=== PATIENT | female | born 2005 | race African-American/Black ===

== ENCOUNTER 2024-06-01 00:17 | Emergency (ER) | payer MEDICAID ==
[~2024-06-01] VITALS: Ht 170.2 cm; Wt 53.0 kg
[2024-06-01 00:27] VITALS: BP 126/84; PULSE 88; RESP 18; TEMP 37; O2SAT 99
[2024-06-01 02:47] LABS: CARBON DIOXIDE 24 mEq/L (21-32); CHLORIDE 106 mEq/L (98-107); SODIUM 139 mEq/L (136-145)
[2024-06-01 02:48] LABS: CALCIUM 9.4 mg/dL (8.7-10.4)
[2024-06-01 02:53] LABS: CREATININE 0.8 mg/dL (0.6-1.0); GLUCOSE 92 mg/dL (70-105); UREA NITROGEN BLOOD 12 mg/dL (9-23)
[2024-06-01 02:54] LABS: ALANINE AMINOTRANSFERASE 13 IU/L (10-49)
[2024-06-01 02:55] LABS: ALBUMIN 4.7 g/dL (3.2-4.8); ASPARTATE AMINOTRANSFERASE 19 IU/L (<34); BILIRUBIN TOTAL 0.6 mg/dL (0.1-1.0); PROTEIN TOTAL 7.6 g/dL (6.0-8.3)
[2024-06-01 03:23] LABS: BASOPHILS % 0.4 % (0.0-2.0); EOSINOPHILS % 0.1 % (0.0-5.0); HEMATOCRIT. 34.5 % (36.0-48.0); HEMOGLOBIN. 11.3 g/dL (12.0-16.0); LYMPHOCYTES % 19.1 % (20.0-50.0); MEAN CORPUSCULAR HEMOGLOBIN 27.5 pg (28.0-32.0); MEAN CORPUSCULAR HGB CONC 32.8 g/dL (31.0-37.0); MEAN PLATELET VOLUME 8.6 fl (7.4-10.4); MONOCYTES % 7.8 % (2.0-8.0); NEUTROPHILS % 72.6 % (40.0-76.0); PLATELET 313 x1000/uL (130-400); RED BLOOD CELL COUNT 4.11 mill/uL (4.2-5.4); RED CELL DISTRIBUTION WIDTH 15.4 % (11.6-14.6); WHITE BLOOD COUNT 9.6 x1000/uL (4.5-11.0)
[2024-06-01] MEDS: ONDANSETRON 4MG ODT PO ONE (03:32)
[2024-06-01] MEDS: ONDANSETRON 4MG ODT PO NR (03:32)
[2024-06-01 04:02] LABS: CLARITY URINE TURBID (CLEAR); COLOR URINE YELLOW (YELLOW); GLUCOSE URINE NEGATIVE (NEGATIVE); KETONES URINE 2+ (NEGATIVE); LEUKOCYTE ESTERASE URINE TRACE (NEGATIVE); NITRITE URINE NEGATIVE (NEGATIVE); OCCULT BLOOD URINE NEGATIVE (NEGATIVE); PH URINE 6.5 (4.5-8.0); PROTEIN URINE 1+ (NEGATIVE); SPECIFIC GRAVITY URINE 1.042 (1.005-1.030)
[2024-06-01] MEDS ORDERED: IBUP-2028 MT (04:29)
[2024-06-01] MEDS ORDERED: ONDA-239 PO (04:29)
[2024-06-01] MEDS ORDERED: NITR-87 MT (04:29)
[2024-06-01 04:51] LABS: HCG SCREEN NEGATIVE
[2024-06-01 06:11] LABS: SQUAMOUS EPITHELIAL CELL URINE 1+ /lpf (RARE/1+)
[2024-06-01 06:15] LABS: RBC URINE 0-2 /hpf (0-2)
[2024-06-01 06:16] LABS: AMORPHOUS SEDIMENT URINE 2+ /lpf; BACTERIA URINE NONE SEEN
== END 2024-06-01 04:40 | disposition home or self-care (01) ==
LOC: ER 00:17
DX: R11.2 Nausea with vomiting, unspecified (principal); N39.0 Urinary tract infection, site not specified
CPT/HCPCS: 99283; 80053; 81003; 81025; 84703; 85025; 36415; Q0162

== ENCOUNTER 2024-11-10 10:25 | Emergency (ER) | payer MEDICAID ==
[~2024-11-10] VITALS: Ht 162.6 cm; Wt 55.0 kg
[~2024-11-10 10:25] MED LIST: IBUP-2028 MT; NITR-87 MT; ONDA-239 PO
[2024-11-10 10:26] VITALS: O2SAT 99
[2024-11-10 10:35] VITALS: BP 108/68; PULSE 73; RESP 16; TEMP 36.5; O2SAT 99
[2024-11-10] MEDS ORDERED: LIDO-53 TP (12:04)
== END 2024-11-10 13:49 | disposition home or self-care (01) ==
LOC: ER 10:25
DX: R07.81 Pleurodynia (principal); Z79.899 Other long term (current) drug therapy
CPT/HCPCS: 71101; 81025; 99283